=== PATIENT | female | born 1965 | race Native Hawaiian/Other Pacific Islander ===

== ENCOUNTER 2017-04-21 13:29 | Outpatient (CLI) | payer OTHER | END 2017-04-21 19:06 | disposition home or self-care (01) | LOC: MRI 13:29 | DX: M96.1 Postlaminectomy syndrome, not elsewhere classified (principal) | CPT/HCPCS: A9576 ==

== ENCOUNTER 2018-03-29 08:04 | Outpatient (CLI) | payer OTHER | END 2018-03-29 22:47 | disposition home or self-care (01) | LOC: MRI 08:04 | DX: M96.1 Postlaminectomy syndrome, not elsewhere classified (principal) | CPT/HCPCS: 36415; 82565; 84520; A9576 ==